=== PATIENT | female | born 1950 | race Caucasian/White ===

== ENCOUNTER 2017-11-23 22:52 | Emergency (ER) | payer MEDICARE ==
[~2017-11-23] VITALS: Ht 157.5 cm; Wt 113.4 kg
[~2017-11-23 22:52] MED LIST: AVAPRO300 MG PO; BUPROPION HCL200 MG PO; CILOXAN5 ML OS; HYZAAR 50-12.5 T1 EA PO; KEFLEX500 MG PO; LEVOTHYROXINE25 MCG PO; MOBIC7.5 MG PO; NORCO 5-325 TA1 EACH PO; PREDNISONE20 MG PO; VENTOLIN HFA18 GM INH
[2017-11-23] MEDS ORDERED: BUPROPION HCL100 M1 PO (23:09)
[2017-11-23] MEDS ORDERED: HYDROCHLOROTHIA25 MG PO (23:09)
[2017-11-23] MEDS ORDERED: IRBESARTAN300 MG PO (23:09)
[2017-11-23] MEDS ORDERED: ASPIR-LOW81 MG PO (23:10)
--- NOTE | 2017-11-26 10:59 | EKG ---
[facility] [address] [facility] [place] [address] Signed Sinus rhythm with frequent premature ventricular complexes Left ventricular hypertrophy with repolarization abnormality Cannot rule out Septal infarct , age undetermined Abnormal ECG No previous ECGs available Confirmed by NING DIAZ MD ([id number]) on 11/26/2017 10:59:27 AM Electronically Signed By: NING DIAZ MD 11/26/17 1059 PATIENT NAME: DORYS BROOKE Electrocardiogram DATE OF : 52 PHYSICIAN: NING DIAZ MD REPORT #: [id number] REPORT IS CONFIDENTIAL AND NOT TO BE RELEASED WITHOUT AUTHORIZATION
== END 2017-11-24 03:04 | disposition home or self-care (01) ==
LOC: ED 22:52
DX: R07.2 Precordial pain (principal); I10 Essential (primary) hypertension; R19.7 Diarrhea, unspecified; Z88.0 Allergy status to penicillin; Z88.2 Allergy status to sulfonamides; Z79.899 Other long term (current) drug therapy
CPT/HCPCS: 71045; 71046; 80053; 84484; 85025; 93005; 93010; 96361; 96374; 96375; 96376; 99284; J1170; J2405; J2550; J7030

== ENCOUNTER 2021-09-30 12:02 | Day surgery (SDC) | payer MEDICARE ==
[~2021-09-30 12:02] MED LIST changes: +ASPIR-LOW81 MG PO; +BUPROPION HCL100 M1 PO; +HYDROCHLOROTHIA25 MG PO; +IRBESARTAN300 MG PO
[2021-09-30] MEDS ORDERED: WOMEN'S 50 PLU1 EACH PO (12:26)
--- NOTE | 2021-09-30 13:43 | NUR ---
09/30/21 1343 Niyah Marley 133 PATIENT ARRIVES TO PACU SLEEPING. AWAKENS WITH VERBAL STIMULI. BACK TO SLEEP WHEN NOT STIMULATED. RESP EVEN AND UNLABORED, NC AT 2 LITERS. OXYGEN OFF AFTER ARRIVING TO PACU.
--- NOTE | 2021-10-02 13:12 | OR ---
[facility] [address] [place], [place] [address] Signed DATE OF OPERATION: 09/30/2021 SURGEON: Leeann Duval MD PREOPERATIVE DIAGNOSIS: Colon screening. POSTOPERATIVE DIAGNOSES: 1. Extensive sigmoid and left-sided diverticulosis. 2. Small polyp of sigmoid. PROCEDURES: Total colonoscopy to cecum with cold morcellation polypectomy x1 and biopsy of rectum. ANESTHESIA: Intravenous sedation, fentanyl 100 mcg and Versed 5 mg. INDICATIONS: This 71-year-old white woman is a patient of RASHID Cole. She last underwent colonoscopy in 2013, at which time she was found to have diverticulosis. At that time, she had bowel habit changes including constipation. She continues to have those symptoms from [id number]. No blood per rectum and she has no family history of colon cancer. She is admitted to undergo colonoscopy at this time, understands the risks of bleeding, infection, and perforation. FINDINGS: The prep was excellent. Complete colonoscopy was undertaken to the cecum. She had numerous diverticula of the sigmoid and left colon. Complete passage of the scope to the cecum was noted. The only finding was a small polyp nestled between some diverticula in the sigmoid colon, which was excised with cold morcellation technique. She also had mild proctitis, for which biopsy was obtained. DESCRIPTION OF PROCEDURE: The patient was brought to the endoscopy suite and placed in lateral decubitus position given intravenous sedation to the point of slurred speech and nystagmus. Digital rectal examination was normal. Full cardiopulmonary monitoring was maintained. An Olympus video colonoscope was passed into the rectum and manipulated throughout the colon noting numerous diverticula of the sigmoid and left colon. The scope was passed of the splenic flexure, it was easily passed to the cecum. Ileocecal valve and appendiceal orifice were normal. Scope was withdrawn from that point. Examination throughout showed no Electronically Signed By: LEEANN DUVAL MD 10/02/21 1312 PATIENT NAME: DORYS BROOKE OPERATIVE REPORT DATE OF : 52 REPORT #: [id number] PHYSICIAN: LEEANN DUVAL MD PCP: KERMIT CASTRO REPORT IS CONFIDENTIAL AND NOT TO BE RELEASED WITHOUT AUTHORIZATION [facility] [address] [place], [place] [address] Signed sign of abnormality until the left colon, where numerous diverticula were once again seen. Upon withdrawal, the sigmoid was a small polyp nestled between a segment of multiple diverticulitis was excised with cold morcellation technique without problem. Further withdrawal confirmed additional diverticula of the rectosigmoid area. Retroflexed view of the rectum was normal except for some mild inflammatory change, possibly bowel prep related. A biopsy was obtained of the rectum on that basis. The scope was then removed and the patient was taken to the recovery room in good condition. CONCLUDING DIAGNOSIS: 1. Extensive diverticulosis. 2. Mild proctitis. 3. Small polyp at sigmoid (excised). PLAN: We would recommend repeat colonoscopy in 5 years. Recommend high-fiber diet. She will return to the ongoing care of RASHID Cole. MD CHANELL Baeza/CHUCKL /[id number] cc: RASHID Cole Copies: ~ Electronically Signed By: LEEANN DUVAL MD 10/02/21 1312 PATIENT NAME: DORYS BROOKE OPERATIVE REPORT DATE OF : 52 REPORT #: [id number] PHYSICIAN: LEEANN DUVAL MD PCP: KERMIT CASTRO PAC REPORT IS CONFIDENTIAL AND NOT TO BE RELEASED WITHOUT AUTHORIZATION
--- NOTE | 2021-10-02 16:01 | PATH ---
[facility] [address] [facility] [place] [address] Signed SPECIMEN(S): A COLON POLYP AT 20 CM SPECIMEN(S): B RECTUM SPECIMEN SOURCE: A. COLON POLYP AT 20 CM B. RECTUM CLINICAL HISTORY: History of sigmoid diverticulosis and constipation FINAL PATHOLOGIC DIAGNOSIS: A. Colon, 20 cm, polypectomy: - Colonic mucosa with no significant pathologic changes. B. Rectum, biopsy: - Colonic mucosa with hyperplastic changes. BRP:[facility]:C2NR MICROSCOPIC EXAMINATION: Histologic sections of all submitted blocks are examined by light microscopy. These findings, together with the gross examination, support the pathologic diagnosis. GROSS DESCRIPTION: Two specimens are received in two containers, labeled "MG." A. The specimen, labeled "MG, #1, polyp at 20 cm," is received in formalin and consists of one vasquez soft tissue fragment that measures 0.4 cm in greatest dimension. The specimen is entirely submitted in cassette (A1). B. The specimen, labeled "MG, biopsy rectum," is received in formalin and consists of one vasquez soft tissue fragment that measures 0.4 cm in greatest dimension. The specimen is entirely submitted in cassette (B1). AI (under the direct supervision of a pathologist) The Gross Description was prepared using a voice recognition system. The report was reviewed for accuracy; however, sound-alike word errors, addition and/or deletions may occur. If there is any question about this report, please contact Client Services. PERFORMING LABORATORY: The technical component was performed by [facility], [address] [place] [id number] (CLIA# [id number]). The professional interpretation was PATIENT NAME: DORYS BROOKE PATHOLOGY DATE OF : 52 REPORT #: [id number] PHYSICIAN: SUMMER SHERMAN PCP: KERMIT CASTRO PAC REPORT IS CONFIDENTIAL AND NOT TO BE RELEASED WITHOUT AUTHORIZATION [facility] [address] [facility] [place] [address] Signed performed by [facility], [facility], [address] [place] [id number] (CLIA#: [id number]). Diagnostician: Diony Strange MD Pathologist Electronically Signed 10/02/2021 Copies: ~ PATIENT NAME: DORYS BROOKE PATHOLOGY DATE OF : 52 REPORT #: [id number] PHYSICIAN: SUMMER SHERMAN PCP: KERMIT CASTRO PAC REPORT IS CONFIDENTIAL AND NOT TO BE RELEASED WITHOUT AUTHORIZATION
== END 2021-09-30 14:25 | disposition home or self-care (01) ==
LOC: OPS 12:02 → DS 12:02 → OPS 13:00 → DS 13:00 → OPS 14:25
PROVIDERS: ATTEND Surgery
PROC: 0DBP8ZX Excision of Rectum, Via Natural or Artificial Opening Endoscopic, Diagnostic (ICD-10-PCS; 2021-09-30)
PROC: 0DBN8ZX Excision of Sigmoid Colon, Via Natural or Artificial Opening Endoscopic, Diagnostic (ICD-10-PCS; principal; 2021-09-30 13:00)
DX: Z12.11 Encounter for screening for malignant neoplasm of colon (principal); K63.5 Polyp of colon; K57.30 Diverticulosis of large intestine without perforation or abscess without bleeding; I12.9 Hypertensive chronic kidney disease with stage 1 through stage 4 chronic kidney disease, or unspecified chronic kidney disease; N18.30 Chronic kidney disease, stage 3 unspecified; E03.9 Hypothyroidism, unspecified; Z88.8 Allergy status to other drugs, medicaments and biological substances; Z88.2 Allergy status to sulfonamides; Z20.822 Contact with and (suspected) exposure to COVID-19
CPT/HCPCS: 99153; G0500; J2250; J3010; J7121